=== PATIENT | male | born 1965 | race Caucasian/White ===

== ENCOUNTER 2022-03-10 19:38 | Emergency (ER) | payer MEDICARE ==
[~2022-03-10] VITALS: Ht 172.7 cm; Wt 83.9 kg
[2022-03-10] MEDS ORDERED: LACTULOSE SYRUP 20 GM/30 ML UDC PO ONE (20:30)
[2022-03-10 21:00] LABS: BASOPHILS # (AUTO) 0.1 (0.0-0.1); BASOPHILS % 0.6 % (0.0-1.0); EOSINOPHILS # (AUTO) 0.1 (0.0-0.4); EOSINOPHILS % 1.6 % (0.0-6.0); HEMATOCRIT 39.3 % (38.2-49.6); HEMOGLOBIN 12.1 g/dL (14.0-18.0); LYMPHOCYTES # (AUTO) 2.5 (1.0-3.2); LYMPHOCYTES % 29.9 % (18.0-39.1); MEAN CORPUSCULAR HGB CONC 30.8 g/dL (31-35); MEAN CORPUSCULAR VOLUME 94.2 fL (81-99); MONOCYTES # (AUTO) 0.9 (0.2-0.8); MONOCYTES % 11.3 % (4.4-11.3); NEUTROPHILS # (AUTO) 4.6 (2.1-6.9); NEUTROPHILS % 56.1 % (38.7-80.0); PLATELET COUNT 192 x10e3/uL (140-360); RED BLOOD COUNT 4.17 x10e6/uL (4.3-5.7); RED CELL DISTRIBUTION WIDTH 14.6 % (11.7-14.4)
[2022-03-10 21:11] LABS: INR 0.9
[2022-03-10 21:20] LABS: ALBUMIN 3.9 g/dL (3.5-5.0); ALBUMIN/GLOBULIN RATIO 1.1 (0.8-2.0); ANION GAP 13.3 mmol/L (8-16); CALCIUM 9.6 mg/dL (8.4-10.2); CREATININE, SERUM 0.7 mg/dL (0.72-1.25); POTASSIUM 4.3 mmol/L (3.5-5.1)
== END 2022-03-10 22:55 ==
LOC: ER 20:07
DX: E72.20 Disorder of urea cycle metabolism, unspecified (principal)
CPT/HCPCS: 36415; 80053; 82140; 85025; 85610; 99284